=== PATIENT | female | born 1975 | race Caucasian/White ===

== ENCOUNTER 2016-12-08 01:19 | Emergency (ER) | payer OTHER ==
[~2016-12-08 01:19] MED LIST: ALBUTEROL17 GM INH; ALPRAZOLAM; CLEOCIN PO; CLINDAMYCIN HC300 MG PO; HYCODAN60 ML 5MG/ PO; MOTRIN400 MG PO; ONDANSETRON HCL4 M1 PO; PREDNISONE PO; TUSSIONEX PENN473 ML PO; TYLENOL #3 PO; ZITHROMAX PO; ZOFRAN; ZOFRAN ODT4 MG/UDTAB PO
== END 2016-12-08 01:48 | disposition home or self-care (01) ==
LOC: SED 01:19
DX: S02.5XXA Fracture of tooth (traumatic), initial encounter for closed fracture (principal); R03.0 Elevated blood-pressure reading, without diagnosis of hypertension; F17.210 Nicotine dependence, cigarettes, uncomplicated; Z88.0 Allergy status to penicillin; Z88.8 Allergy status to other drugs, medicaments and biological substances; X58.XXXA Exposure to other specified factors, initial encounter; Y92.9 Unspecified place or not applicable; Z85.3 Personal history of malignant neoplasm of breast
CPT/HCPCS: 99283

== ENCOUNTER 2017-01-27 04:07 | Emergency (ER) | payer OTHER | END 2017-01-27 05:02 | disposition left against medical advice (07) | LOC: SED 04:07 | DX: Z53.21 Procedure and treatment not carried out due to patient leaving prior to being seen by health care provider (principal) ==